=== PATIENT | male | born 1990 | race Caucasian/White ===

== ENCOUNTER 2021-07-13 20:15 | Emergency (ER) | payer BC, OTHER ==
[2021-07-13 20:33] VITALS: BP 140/80; PULSE 84; TEMP 98.2; BMI 28.8
== END 2021-07-13 21:33 | disposition home or self-care (01) ==
LOC: FER 20:15
DX: J32.9 Chronic sinusitis, unspecified (principal)
CPT/HCPCS: 70360-TC-FY; 99283-25